=== PATIENT | female | born 1960 | race Asian ===

== ENCOUNTER 2016-05-03 06:35 | Day surgery (SDC) | payer OTHER ==
[~2016-05-03] VITALS: Ht 124.5 cm; Wt 41.0 kg
[2016-05-03] VITALS (21 sets, daily range): BP systolic 67–122; BP diastolic 45–59; PULSE 64–85; RESP 15–22; Ht 124.5 cm; Wt 41.0 kg
[2016-05-03] MEDS ORDERED: IODIXANOL LOCM 100 ML BTL ONE ×2 (08:26→10:44)
[2016-05-03] MEDS ORDERED: LIDOCAINE 1% (MDV) 20 ML INJ ONE (08:26)
[2016-05-03] MEDS ORDERED: PSEU30TA38 PO (08:35)
[2016-05-03] MEDS ORDERED: VERAPAMIL 5 MG INJ ONE (08:36)
[2016-05-03] MEDS ORDERED: NITROGLYCERIN (IC) 100 MCG/ML INJ ONE (08:36)
[2016-05-03] MEDS ORDERED: HEPARIN 1000 UNITS/ML 10 ML INJ ONE (08:36)
--- NOTE | 2016-05-03 08:59 | RADRPT ---
PROCEDURE: Chest Radiograph. CLINICAL INDICATION: Preop. Coronary artery disease. TECHNIQUE: Single frontal chest radiograph. COMPARISON: None available FINDINGS: The heart is magnified and may be enlarged. The cardiomediastinal silhouette is within normal limit s. No infiltrate or effusion is seen. The bones are intact. IMPRESSION: 1. No evidence of acute cardiopulmonary disease. 2. Probable cardiomegaly. RPTAT: KK .Neo Blair MD, MD Date Time Electronically viewed and signed by .Neo Blair MD, MD on 05/03/2016 08:59 .B/
[2016-05-03 09:22] LABS: POTASSIUM 3.6 mmol/L (3.5-5.1)
[2016-05-03 09:24] LABS: CALCIUM 8.3 mg/dl (8.4-10.2); CREATININE 0.96 mg/dl (0.44-1.00); INR 0.98; PARTIAL THROMBOPLASTIN TIME 30.3 Sec (25.0-35.0)
[2016-05-03 09:25] LABS: CHOL/HDL RATIO 2.9 RATIO
[2016-05-03 09:27] LABS: HEMATOCRIT 36.4 % (37.0-47.0); HEMOGLOBIN 12.4 g/dl (12.0-16.0); MEAN CORPUSCULAR VOLUME 94.2 fl (82.0-101.0); MEAN PLATELET VOLUME 8.5 fl (7.4-10.4); PLATELET COUNT 123 10^3/UL (140-440); RED BLOOD COUNT 3.86 10^6/ul (4.20-5.40); RED CELL DISTRIBUTION WIDTH 14.4 % (11.5-14.5); UNCORRECTED WBC 3.5 10^3/ul (4.8-10.8); WHITE BLOOD COUNT 3.5 10^3/ul (4.8-10.8)
[2016-05-03 09:28] LABS: CONDITION 1; LH ANALYZER COMMENTS 1
[2016-05-03] MEDS ORDERED: MIDAZOLAM 1 MG/ML 2 ML INJ ONE (09:51)
[2016-05-03] MEDS ORDERED: FENTAnyl 50 MCG/ML VIAL ONE (09:51)
[2016-05-03] MEDS ORDERED: SOD CHLORIDE 0.9% 1,000 ML IV SCH (11:46)
[2016-05-03] MEDS ORDERED: ONDANSETRON 4 MG INJ IV PRN (12:00)
[2016-05-03] MEDS ORDERED: AL HYDROX/MG HYDROX/SIMETH 30 ML CUP PO PRN (12:00)
[2016-05-03] MEDS ORDERED: morphine 2 MG INJ IV PRN (12:00)
[2016-05-03] MEDS ORDERED: ACETAMINOPHEN 325 MG TAB PO PRN (12:00)
[2016-05-03 13:02] LABS: LYMPHOCYTES # 1.1 10^3/ul (0.8-2.9); MONOCYTE # 0.5 10^3/ul (0.3-0.9); NEUTROPHIL # 1.7 10^3/ul (1.6-7.5)
--- NOTE | 2016-05-03 15:23 | CARRPT ---
DATE OF PROCEDURE: 05/03/2016 TYPE OF PROCEDURE: 1. Left heart catheterization. 2. Coronary angiography. 3. Right heart catheterization. ATTENDING PHYSICIAN: Yuriy Murillo MD REFERRING PHYSICIAN: Nyla Silver MD INDICATION: Critical aortic stenosis by 2D echocardiogram and abnormal cardiac stress test revealin g anterior ischemia, high-risk marker for cardiovascular events. TYPE OF ANESTHESIA: Conscious and local. BRIEF HISTORY: Ms. Prieto is a 55-year-old female with a history of developmental delay, who initially presented with complaints of shortness of breath and substernal chest pain. The patient underwent cardiac stress test revealing anterior ischemia and 2D echo revealing possible critical aortic steno sis. Given these findings, the patient was referred for left and right heart catheterization to ass ess for the possibility of significant obstructive coronary artery disease and aortic stenosis lendi ng to her symptoms of shortness of breath and chest pain. DESCRIPTION OF PROCEDURE: After informed consent was obtained, the patient was brought to the [facility] cardiac catheterization lab where her right groin was prepped and draped in usual sterile fashion. Lidocaine 2% was infiltrated into the right groin in order to achieve adequa te local anesthesia. Using modified Seldinger technique, the right femoral artery was cannulated an d a 7 Pakistani venous sheath was placed. Subsequently, after using modified Seldinger technique, the right femoral artery was cannulated and a 6 Pakistani arterial sheath was placed. At this time, a 7 Fr ench Cook-Kamari catheter was passed up the IVC into the RA, RV, PA, and finally pulmonary capillary w edge positions. Cardiac output was determined by thermodilution method and removed, and the cathete r was subsequently removed. At this time, we moved in to left heart catheterization. The patient h ad a JL3.5 used to cannulate the left main coronary ostium. With contrast injection, multiple views of the left coronary arterial system were obtained. JL3.5 removed over a guidewire and JR4 was use d to cannulate the right coronary arterial ostium. With contrast injection, multiple views of the r ight coronary arterial system obtained. JR4 was then left in place and using a straight Glidewire w e were able to cross the aortic valve with some difficulty and subsequently the catheter was placed in the ventricle and at this time it was exchanged for a Rafael dual-lumen catheter. Subsequently , this was placed. The patient's aortic valve gradient was assessed and then the pigtail catheter w as pulled back across the aortic valve to further assess the gradient and subsequently removed. Sub sequently, at this time a final angiographic image of the right femoral arterial insertion site was then obtained revealing the sheath to be well placed in the right common femoral artery, but due to small caliber size vessels, it was elected not to use a closure device. The patient's arterial and venous sheaths were removed. Manual pressure held until optimal hemostasis was achieved, completing the procedure. There were no noted complications. FINDINGS: CORONARY ANGIOGRAPHY: Left main 4 mm, no significant stenoses. Circumflex proximally is a 3 mm ves kiley and is free of any significant focal stenosis throughout its entirety. There exists a ramus bra nch 2.5 mm with no significant stenoses, and a LAD 3.5 mm vessel with mild luminal irregularities up to 20% in the mid portion. The LAD goes around the apex. There is a paucity of diagonals with 1 d istally branching diagonal sub-2 mm vessel. The right coronary artery proximally is a 3.5 mm vessel and is the dominant vessel, gives off a 2 mm PDA with an ostial 20% stenosis and a 3 mm posterolate ral branch which covers a of territory and has no significant focal stenoses. Left ventricular end-diastolic pressure measured at 16 to 18. RIGHT HEART CATHETERIZATION: Right atrial pressure of 7. Right ventricular pressure of 58/5. Pul monary arterial pressure of 57/26. Cardiac output of 3.79. Cardiac index of 3.3 with a pulmonary c apillary wedge pressure of 24. Aortic valve area calculated at 0.33 and a mean gradient at 111.6. TOTAL FLUOROSCOPY TIME: 13 minutes. TOTAL CONTRAST: 70 mL. IMPRESSION: 1. Very mild nonobstructive coronary artery disease. 2. Moderately elevated right heart filling pressures. 3. Mildly low to low-normal cardiac output and cardiac index. 4. Critical aortic stenosis by valve area gradient. RECOMMENDATIONS: In light of procedure and findings at this time: 1. The patient should be considered for aortic valve replacement, either open or percutaneous. 2. The patient will be readmitted to the same day surgery center for post-catheterization observati on with probable discharge later this afternoon. Dictated By: YURIY CAGLE/JESSICA Conf#: [id number] DID#: [id number] CC: NYLA SILVER MD;*[facility]*
--- NOTE | 2016-05-03 16:03 | RADRPT ---
Vent Rate: 71 bpm RR Interval: 0 msec HI Interval: 152 msec QRS Duration: 76 msec QT Interval: 438 msec QTC Interval: 475 msec P-R-T Liberal: 69 - 65 - 59 degrees Normal sinus rhythm Possible Left atrial enlargement ST abnormality, possible digitalis effect Abnormal ECG Electronically Signed By: Caden Silver [id number]
== END 2016-05-03 18:00 | disposition home or self-care (01) ==
LOC: SDS 06:35
PROVIDERS: ATTEND Internal Medicine
DX: I25.10 Atherosclerotic heart disease of native coronary artery without angina pectoris (principal); R94.39 Abnormal result of other cardiovascular function study; I50.9 Heart failure, unspecified
CPT/HCPCS: 71010; 80048; 80061; 85025; 85610; 85730; 93005; 93460; C1769; C1887; C1894; J1644; J2250; J3010; Q9967; Z7610; 84703